=== PATIENT | male | born 1945 | race Caucasian/White ===

== ENCOUNTER 2017-03-17 06:00 | Inpatient (IN) | payer BC ==
[2017-03-17] MEDS ORDERED: oxyCODONE HCL 10 MG SUSTAINED ACTING TABLET PO STA (06:37)
[2017-03-17 07:27] VITALS: BMI 27.9
[2017-03-17] MEDS ORDERED: GELATIN, ABSORBABLE 100 EACH SPONGE TP ONE (07:47)
[2017-03-17] MEDS ORDERED: LIDOCAINE 1%/EPI 1:100000 (20 ML MULTI DOSE VIAL) ONE (07:48)
[2017-03-17] MEDS ORDERED: THROMBIN (BOVINE) 5,000 UNIT VIAL TP ONE ×2 (07:50→09:24)
[2017-03-17] MEDS ORDERED: BUPIVACAINE HCL/PF (5 MG/ML) 30 ML VIAL IJ ONE (08:04)
[2017-03-17] MEDS ORDERED: MIDAZOLAM HCL 2 MG/2 ML SINGLE DOSE VIAL ONE (08:04)
[2017-03-17] MEDS ORDERED: DEXAMETHASONE SOD PHOSPHATE/PF 10 MG/ML SDV ONE (08:04)
[2017-03-17] MEDS ORDERED: BUPIVACAINE LIPOSOME/PF (EXPAREL) 266 MG/20 ML VIAL ONE (08:05)
[2017-03-17] MEDS ORDERED: SUCCINYLCHOLINE CHLORIDE 200 MG/10 ML VIAL ONE (08:57)
[2017-03-17] MEDS ORDERED: LIDOCAINE 1%/EPI 1:100000 (20 ML MULTI DOSE VIAL) IJ ONE ×2 (09:15→09:42)
[2017-03-17] MEDS ORDERED: ONDANSETRON 4 MG/2 ML VIAL IVPUSH PRN (09:25)
[2017-03-17] MEDS ORDERED: LACTATED RINGERS SOLUTION 1,000 ML IV SCH (09:30)
[2017-03-17] MEDS ORDERED: GUM MASTIC/STORAX/MSAL/ALCOHOL 1 DRP DROPSBTL MC ONE (10:35)
--- NOTE | 2017-03-17 10:51 | HP ---
History & Physical Update - History History: No Change - Physical Physical: No Change - Assessment Assessment: No Change - Plan Plan: No Change
--- NOTE | 2017-03-17 10:53 | OP ---
Operative Note - Note: Operative Date: 03/17/17 Pre-Operative Diagnosis: L4-L5 spondylolithesis Operation: L4-L5 TILF Implants: allograft Post-Operative Diagnosis: Same as Pre-op Surgeon: Hesham Nelson Towboat Operator: Jeremiah Hamm Anesthesiologist/PHOTOSTAT OPERATOR HELPER: Dustin Alexander (TLIP in holding) Anesthesia: Spinal Estimated Blood Loss (mls): 25 Fluid Volume Replaced (mls): 900 Operative Report Dictated: Yes
[2017-03-17] MEDS ORDERED: oxyCODONE HCL 5 MG TABLET ONE (13:42)
[2017-03-17] MEDS ORDERED: oxyCODONE HCL 5 MG TABLET PO ONE (14:37)
[2017-03-17 15:21] VITALS: TEMP 98
--- NOTE | 2017-03-17 15:35 | SURG ---
Surgery Gas Manager Note Gas Manager: Jeremiah Hamm PA-C Date of Service: 03/17/17 Diagnosis: L4-L5 spondylolithesis, radiculopathy Procedure: L4-L5 transforaminal lumbar interbody fusion/decimpression/instrumentation, allograft implant, neuromonitoring I was present for the entirety of the operative procedure. For further detail, please refer to operative report. Visit type - Case Type Case Type: Scheduled Admission - New patient This patient is new to me today: Yes Date on this admission: 03/17/17
[2017-03-17] MEDS ORDERED: KETOROLAC TROMETHAMINE 30 MG/1 ML VIAL ONE (16:03)
[2017-03-17] MEDS ORDERED: CEFAZOLIN 1 GM/D5W 1 GM/50 ML BAG ONE (16:10)
[2017-03-17] MEDS ORDERED: CYCLOBENZAPRINE HCL 10 MG TABLET (FP) PO ONE (16:15)
[2017-03-17] MEDS ORDERED: KETOROLAC TROMETHAMINE 15 MG/ML VIAL IVPUSH ONE (16:15)
[2017-03-17 18:30] VITALS: BP 138/76; PULSE 76
--- NOTE | 2017-03-22 11:54 | OP ---
DATE OF OPERATION: 03/17/2017 PREOPERATIVE DIAGNOSES: 1. Spondylolisthesis at L4-5. 2. Spinal stenosis at L4-5. POSTOPERATIVE DIAGNOSES: 1. Spondylolisthesis at L4-5. 2. Spinal stenosis at L4-5. PROCEDURE PERFORMED: 1. Transforaminal lumbar interbody fusion at L4-5. 2. Placement of instrumentation. 3. Placement of prosthetic cage. SURGEON: Hesham Nelson MD UX VISUAL DESIGNER: LAURA Pinedo ESTIMATED BLOOD LOSS: 50 mL INTRAVENOUS FLUIDS: Per Anesthesia. COMPLICATIONS: None. DISPOSITION: Patient brought to the PACU in stable condition. ANESTHESIA: Spinal/TLIP. INDICATION FOR SURGERY: The patient is a 71-year-old gentleman who has been suffering from pain from his back down his leg. X-rays and MRI were completed which noted that he had spinal stenosis at L4-5 secondary to a spondylolisthesis. He had gone through an exhaustive course of treatment for this which included medications, physical therapy, as well as injections. Unfortunately, his pain continued to persist despite all this. At this point, risks, benefits, and alternatives were discussed, and the patient consented to surgery. DESCRIPTION OF PROCEDURE: Patient was brought to the operating room by the anesthesia staff. After appropriate patient identification was performed, spinal anesthesia was given. A TLIP block was also given. Patient was placed prone onto the OR table with all areas of bony prominences well padded at this time. The C-arm was brought in. The L4 and L5 pedicles were marked off. Next, 10 mL of lidocaine with epinephrine were injected into his back. At this time, his back was prepped and draped in a sterile manner. At this point, timeout was completed. Incisions were made bilaterally over the L4 and L5 pedicles. Dissection was carried down to the fascia. Fascia was then split open at this time, and appropriate retractors were then placed in. Under C-arm guidance, trocars were advanced into both the L4 and L5 pedicles. Through the trocars, guidewire was inserted. Over the guidewire, a tap was performed and screws inserted. On the left-hand side, retractor blades were set up to expose the L4-5 facet joint. This was confirmed with x-ray. The facet joint was removed. The disk was entered using a series of pituitaries, Kerrisons, and curettes. A diskectomy was completed. The endplates were decorticated at this time. Bone graft was laid down. A cage filled with bone graft was placed in. Tulip heads were placed over the screws. A nicki was measured and placed in. Caps were placed on. Final tightening was performed. On the right-hand side, a nicki was measured and placed in. Caps were placed on. Final tightening was performed. All instrumentation was removed at this time. AP and lateral x-rays confirmed the instrumentation to be in good position. The fascia was closed with a No. 1 Vicryl suture. The subcutaneous tissue was closed with 2-0 Vicryl suture. The skin was closed with 3-0 Monocryl suture. Dermabond was applied. Steri-Strips were applied. A sterile dressing was applied. Patient was placed supine on the OR bed and brought to the PACU in stable condition. Hawa [id number]
== END 2017-03-17 18:15 | disposition home or self-care (01) | DRG 460 ==
LOC: FASU 06:00 → EDSTATUS 10:15 → FM/S 11:16
PROVIDERS: ADMIT Orthopaedic Surgery Orthopaedic Surgery of the Spine; ATTEND Orthopaedic Surgery Orthopaedic Surgery of the Spine
PROC: 0SB20ZZ Excision of Lumbar Vertebral Disc, Open Approach (ICD-10-PCS; 2017-03-17)
PROC: 4A11X4G Monitoring of Peripheral Nervous Electrical Activity, Intraoperative, External Approach (ICD-10-PCS; 2017-03-17)
PROC: 0SG00AJ Fusion of Lumbar Vertebral Joint with Interbody Fusion Device, Posterior Approach, Anterior Column, Open Approach (ICD-10-PCS; principal; 2017-03-17 09:24)
DX: M43.16 Spondylolisthesis, lumbar region (principal); M54.16 Radiculopathy, lumbar region
CPT/HCPCS: 72100-TC-FY

== ENCOUNTER 2017-05-23 06:09 | Day surgery (SDC) | payer BC ==
[2017-05-17 17:25] VITALS: BMI 27.0
[2017-05-23 13:23] VITALS: PULSE 60; TEMP 98
[2017-05-23 15:00] VITALS: BP 116/65
== END 2017-05-23 14:00 | disposition home or self-care (01) ==
LOC: FASU 06:09
PROVIDERS: ATTEND Orthopaedic Surgery Orthopaedic Surgery of the Spine
PROC: 01NB0ZZ Release Lumbar Nerve, Open Approach (ICD-10-PCS; principal; 2017-05-23)
DX: M48.061 Spinal stenosis, lumbar region without neurogenic claudication (principal)
CPT/HCPCS: 72100-TC-FY; 94760

== ENCOUNTER 2018-03-16 06:01 | Inpatient (IN) | payer BC, OTHER ==
[2018-03-09 10:42] VITALS: BMI 28.8
[~2018-03-16 06:01] MED LIST: CEFAZOLIN 2 GM in DEXTROSE 5%-WATER - 50 ML IVPB ONE; CELECOXIB 200 MG CAPSULE PO ONE; GABAPENTIN 300 MG CAPSULE (FP) PO ONE; PANTOPRAZOLE 40 MG TABLET (FP) PO ONE; ROPIVICAINE 0.2%/MORPH PF/KETOROLAC - 51ML DISP.SYRINGE IA ONE; TRANEXAMIC ACID 1000 MG/10 ML VIAL IVPUSH ONE; oxyCODONE HCL 10 MG SUSTAINED ACTING TABLET PO ONE
[2018-03-16] MEDS ORDERED: PANTOPRAZOLE 40 MG TABLET (FP) ONE (07:01)
[2018-03-16] MEDS ORDERED: oxyCODONE HCL 10 MG SUSTAINED ACTING TABLET ONE (07:01)
[2018-03-16] MEDS ORDERED: GABAPENTIN 300 MG CAPSULE (FP) ONE (07:01)
[2018-03-16] MEDS ORDERED: CELECOXIB 200 MG CAPSULE ONE (07:02)
--- NOTE | 2018-03-16 07:13 | HP ---
Admitting History and Physical - Admission Chief Complaint: right hip osteoarthritis x years History of Present Illness: 72-year-old male presenting in regard to his right hip. Long-standing history of right hip osteoarthritis. Patient complains of pain, limited range of motion , difficulty ambulating, and difficulty with activities of daily living. Patient has Isaiah conservative treatment options including PO medications, activity modification, injections, and exercise programs. At this point, patient would like to proceed with surgical intervention-right total hip arthroplasty, MAKOplasty. History Source: Patient - Past Medical History Cardiovascular: Yes: HTN. No: AFIB, Deep Vein Thrombosis Renal/: Yes: UTI. No: Hematuria - Past Surgical History Additional Past Surgical History: See written history and physical. - Smoking History Smoking history: Former smoker Have you smoked in the past 12 months: No - Alcohol/Substance Use Hx Alcohol Use: No Home Medications - Allergies Allergies/Adverse Reactions: Allergies Allergy/AdvReac Type Severity Reaction Status Date / Time No Known Drug Allergies Allergy Verified 03/09/18 10:34 - Home Medications Home Medications: Ambulatory Orders Lisinopril 10 mg PO BID 03/14/17 Acetaminophen [Tylenol -] 325 mg PO Q6H PRN 03/14/18 Clindamycin [Cleocin -] 150 mg PO Q6H 03/14/18 Metformin HCl [Glucophage] 500 mg PO HS 03/16/18 Review of Systems - Review of Systems Musculoskeletal: reports: Decreased ROM (right hip), Joint Pain (right hip) Physical Examination Vital Signs: Vital Signs Temperature Pulse Rate Respiratory Rate Blood Pressure O2 Sat by Pulse Oximetry (%) 98 03/16/18 06:40 Constitutional: Yes: Well Nourished, No Distress Eyes: Yes: Conjunctiva Clear HENT: Yes: Atraumatic, Normocephalic Neck: Yes: Supple Cardiovascular: Yes: Regular Rate and Rhythm Respiratory: Yes: Regular Gastrointestinal: Yes: Soft ...Rectal Exam: Yes: Deferred Musculoskeletal: Yes: Joint Stiffness (right hip), Joint Swelling (right hip) Assessment/Plan 72-year-old male presenting in regard to his right hip. Long-standing history of right hip osteoarthritis. Patient complains of pain, limited range of motion , difficulty ambulating, and difficulty with activities of daily living. Patient has Isaiah conservative treatment options including PO medications, activity modification, injections, and exercise programs. At this point, patient would like to proceed with surgical intervention-right total hip arthroplasty, MAKOplasty. Pros, cons, risks, benefits and alternatives of a right total hip arthroplasty, MAKOplasty was discussed with the patient at length. Patient confirms his understanding and consents to proceed with a right total hip arthroplasty, MAKOplasrt.
[2018-03-16] MEDS ORDERED: ceFAZolin SODIUM 1 GM VIAL ONE ×2 (07:17→08:57)
[2018-03-16] MEDS ORDERED: TRANEXAMIC ACID 1000 MG/10 ML VIAL ONE ×2 (07:17→08:34)
[2018-03-16] MEDS ORDERED: VANCOMYCIN 1,000 MG VIAL (RESTRICTED TO ID ONLY) ONE (07:18)
[2018-03-16] MEDS ORDERED: MIDAZOLAM HCL 2 MG/2 ML SINGLE DOSE VIAL ONE (07:38)
[2018-03-16] MEDS ORDERED: SUCCINYLCHOLINE CHLORIDE 200 MG/10 ML VIAL ONE (07:38)
[2018-03-16] MEDS ORDERED: ROPIVACAINE HCL 0.5% 30ML VIAL ONE (07:39)
[2018-03-16] MEDS ORDERED: ePHEDrine SULFATE 50 MG/1 ML AMPULE ONE (08:54)
[2018-03-16] MEDS ORDERED: PROPOFOL 20 ML ONE ×2 (09:10)
[2018-03-16] MEDS ORDERED: TRANEXAMIC ACID 1000 MG/10 ML VIAL IVPB ONE ×2 (09:38→10:42)
[2018-03-16] MEDS ORDERED: VANCOMYCIN 1,000 MG VIAL (RESTRICTED TO ID ONLY) IVPB ONE ×2 (09:39→10:42)
[2018-03-16] MEDS ORDERED: ONDANSETRON 4 MG/2 ML VIAL IVPUSH PRN ×2 (10:17→11:29)
[2018-03-16] MEDS ORDERED: oxyCODONE HCL 5 MG TABLET PO PRN (10:17)
[2018-03-16] MEDS ORDERED: ACETAMINOPHEN 325 MG TABLET (FP) PO SCH (10:30)
[2018-03-16] MEDS ORDERED: LACTATED RINGERS SOLUTION 1,000 ML IV SCH ×2 (10:30→11:30)
[2018-03-16] MEDS ORDERED: ROPIVICAINE 0.2%/MORPH PF/KETOROLAC - 51ML DISP.SYRINGE IA ONE ×2 (10:33→10:42)
[2018-03-16] MEDS ORDERED: KETOROLAC TROMETHAMINE 30 MG/1 ML VIAL ONE (11:22)
[2018-03-16] MEDS ORDERED: MAGNESIUM HYDROX 2400MG/30ML ORAL SUSPENSION 30 ML CUP PO PRN (11:29)
[2018-03-16] MEDS ORDERED: MAG HYDROX/AL HYDROX/SIMETH 30 ML UNIT-DOSE CUP PO PRN (11:29)
[2018-03-16] MEDS ORDERED: ACETAMINOPHEN INJECTION 100 ML IVPB ONE (11:30)
[2018-03-16] MEDS ORDERED: traMADol HCL 50 MG TABLET ONE (11:30)
[2018-03-16] MEDS: KETOROLAC TROMETHAMINE 30 MG/1 ML VIAL IVPUSH SCH ×4 (11:37→23:34)
[2018-03-16] MEDS: ACETAMINOPHEN 1000 MG/100 ML VIAL (NON FORMULARY) IVPB ONE ×2 (11:40→12:42)
[2018-03-16] MEDS: traMADol HCL 50 MG TABLET PO SCH ×4 (11:47→23:35)
[2018-03-16] MEDS: CLINDAMYCIN HCL 150 MG CAPSULE (FP) PO SCH ×4 (12:13→23:34)
--- NOTE | 2018-03-16 12:15 | SPEC ---
DATE OF OPERATION: 03/16/2018 PREOPERATIVE DIAGNOSIS: Right hip osteoarthritis. POSTOPERATIVE DIAGNOSIS: Right hip osteoarthritis. PROCEDURE: Right total hip replacement with MAKOplasty robotic navigation. ATTENDING: Young Giordano MD HEALTH AND SAFETY INSPECTOR: LAURA Godwin. ANESTHESIA: Spinal plus sedation. ESTIMATED BLOOD LOSS: 200 mL. COMPLICATIONS: None. DISPOSITION: The patient was transferred to the PACU in stable condition. IMPLANTS USED: Elizabeth Accolade 2 size 10 femoral components, Winifred Tritanium 58 mm acetabular component with 40 and 25 mm acetabular screws, MDM bipolar head ball and liner with interceramic 0 offset head ball. INDICATIONS: This is a 72-year-old male who presented to the office complaining of severe right hip pain. He has a previous history of lumbar radiculopathy and underwent spine surgery, but still continues to have radiating pain in his right thigh. Radiograph and physical examination revealed severe arthritis of the right hip. The patient was initially treated non-operatively, but conservative management failed. He was therefore indicated for a right total hip replacement. The risks, benefits, and alternatives to the procedure were explained to the patient in great detail, and he elected to proceed with the surgery. DESCRIPTION OF PROCEDURE: On the day of surgery, the patient was taken to the operating room and placed on the OR table. Spinal anesthesia was administered by the anesthesiologist. The patient was then positioned in the lateral decubitus position on the table and all bony prominences were padded. An axillary roll was placed. The operative hip was then prepped and draped in the usual sterile fashion and intravenous antibiotics were given for infection prophylaxis. A surgical time-out was then performed with the team, and the patients identity, procedure, side, availability of implants, and the administration of antibiotics were confirmed. An approximately 15-cm longitudinal incision was made through the skin centered on the greater trochanter of the hip. This dissection was carried down through the subcutaneous tissues to the deep fascia. This fascia was then incised and a Cobra was placed around the inferior femoral neck. Electrocautery was used to reflect the anterior 40% of the gluteus medius and minimus starting at the musculotendinous junction and leaving a cuff for closure. This was reflected to reveal the capsule of the hip joint. An anterior capsulectomy was performed and the femoral head and neck were visualized. Grade 4 changes were noted diffusely throughout the joint. At this point, three small stab incisions were made superior to the main incision along the iliac crest. Three self-drilling Steinmann pins were then placed and the [employer] pelvic array was attached. Reference points on the limb were then entered into the robotic device and the limb length deficiency, offset, and femoral neck resection level were then calculated by the software. The hip was then dislocated with traction and external rotation. An oscillating saw was used to make the femoral neck cut at the level previously templated, and the femoral head was removed. Attention was then turned to the acetabulum. Retractors were then placed around the acetabulum and the labrum was removed. An acetabular checkpoint pin and the [employer] software were used to register the contours of the acetabulum. The acetabulum was then reamed in a single stage to the preoperatively templated size using the [employer] robotic arm. The appropriately sized cup was then impacted and had solid fixation as well as the preset inclination and version of 40 and 20 degrees, respectively. A polyethylene liner was then placed in the cup. Attention was then turned back to the femur, which was externally rotated for improved visualization. A femoral neck elevator was used to present the femoral neck cut, a box osteotome was used to enter the femoral canal, and a canal finder was used to go down the femoral shaft. The Bart broaches were used sequentially until the optimal scratch fit was achieved. This correlated with the preoperatively templated size. From here, several different offset head and neck configurations were tested until excellent stability and length were obtained. These measurements were quantified using the [employer] software. All trial components were then removed, the femur was copiously irrigated, and the final components were placed. Leg length and stability were checked again and found to be excellent. Irrigation was performed again. Wound closure was started by repairing the abductor muscles with a no. 2 FiberWire stitch in a Krackow configuration passed through bone tunnels in the greater trochanter and tied over a bony bridge. This repair was then reinforced with a 0 V-Loc 180 barbed suture. Next, no. 1 Polysorb and 0 V-Loc 180 were used to close the fascia. The deep subcutaneous tissue was closed with no. 1 Polysorb sutures, and 2-0 Polysorb was used for the superficial subcutaneous tissue. The skin was closed using both 3-0 V-Loc 90 suture in a running subcuticular fashion and SwiftSet skin adhesive. The Bart array and pins were removed from the iliac crest and the stab incision sites were irrigated and closed with 4-0 Polysorb sutures and SwiftSet skin adhesive. Once this was completed, a sterile dressing was applied. The patient was then awakened and taken to the PACU in stable condition. YOUNG GIORDANO M.D. [id number]
[2018-03-16] MEDS: ACETAMINOPHEN 325 MG TABLET (FP) PO SCH ×2 (18:12→23:37)
[2018-03-16] MEDS: CEFAZOLIN 2 GM/D5W 2 GM/50 ML ML IVPB SCH (18:13)
[2018-03-16] MEDS ORDERED: DEXAMETHASONE SOD PHOSPHATE 10 MG/1 ML VIAL IVPB ONE (20:00)
[2018-03-16] MEDS: metFORMIN HCL 500 MG TABLET (FP) PO SCH (21:14)
[2018-03-16] MEDS: oxyCODONE HCL 10 MG SUSTAINED ACTING TABLET PO SCH (21:14)
[2018-03-16] MEDS: GABAPENTIN 300 MG CAPSULE (FP) PO SCH (21:14)
[2018-03-16] MEDS: CELECOXIB 200 MG CAPSULE PO SCH (21:14)
[2018-03-16] MEDS: SENNOSIDES/DOCUSATE COMBO (SENNA PLUS) TABLET (UD) PO SCH (21:15)
[2018-03-16] MEDS: LISINOPRIL 10 MG TABLET (FP) PO SCH (21:15)
[2018-03-16] MEDS: ASCORBIC ACID 500 MG TABLET (FP) PO SCH (21:15)
[2018-03-16] MEDS ORDERED: GABAPENTIN 300 MG CAPSULE (FP) PO SCH (22:00)
[2018-03-17] MEDS: CEFAZOLIN 2 GM/D5W 2 GM/50 ML ML IVPB SCH (01:06)
[2018-03-17] MEDS: CLINDAMYCIN HCL 150 MG CAPSULE (FP) PO SCH ×4 (05:52→23:29)
[2018-03-17] MEDS: KETOROLAC TROMETHAMINE 30 MG/1 ML VIAL IVPUSH SCH (05:52)
[2018-03-17] MEDS: traMADol HCL 50 MG TABLET PO SCH ×4 (05:53→23:29)
[2018-03-17] MEDS: ACETAMINOPHEN 325 MG TABLET (FP) PO SCH ×4 (05:54→23:30)
[2018-03-17 07:28] LABS: HEMATOCRIT 43.8 % (35.4-49); HEMOGLOBIN 14.4 GM/dl (11.7-16.9); MCH 30.1 pg (25.7-33.7); MCHC 32.8 g/dl (32.0-35.9); MEAN CELL VOLUME 91.7 fl (80-96); MEAN PLT VOLUME 8.5 fl (7.5-11.1); PLATELET COUNT 212 K/MM3 (134-434); RBC 4.77 M/mm3 (4.00-5.60); RDW 12.1 % (11.9-15.9); WHITE BLOOD COUNT 11.1 K/mm3 (4.0-10.8)
[2018-03-17] MEDS: ASPIRIN 325 MG TABLET PO SCH (08:03)
[2018-03-17 08:12] LABS: ANION GAP 11 MMOL/L (8-16); BLOOD UREA NITROGEN 28 mg/dl (7-18); CHLORIDE 101 mmol/L (98-107); CO2 24 mmol/L (21-32); GLUCOSE,RANDOM 255 mg/dl (74-106); POTASSIUM 5.1 mmol/L (3.5-5.1); SODIUM 136 mmol/L (136-145)
[2018-03-17] MEDS: oxyCODONE HCL 5 MG TABLET PO PRN ×2 (08:15→08:16)
[2018-03-17] MEDS: PANTOPRAZOLE 40 MG TABLET (FP) PO SCH (09:47)
[2018-03-17] MEDS: SENNOSIDES/DOCUSATE COMBO (SENNA PLUS) TABLET (UD) PO SCH ×2 (09:47→21:05)
[2018-03-17] MEDS: ASCORBIC ACID 500 MG TABLET (FP) PO SCH ×2 (09:47→21:05)
[2018-03-17] MEDS: LISINOPRIL 10 MG TABLET (FP) PO SCH ×2 (09:47→21:05)
[2018-03-17] MEDS: MULTIVITAMINS (DAILY MVI) TABLET (FP) PO SCH (09:48)
[2018-03-17] MEDS: CELECOXIB 200 MG CAPSULE PO SCH ×2 (09:48→21:05)
[2018-03-17] MEDS: GABAPENTIN 300 MG CAPSULE (FP) PO SCH ×2 (09:48→21:05)
[2018-03-17] MEDS: oxyCODONE HCL 10 MG SUSTAINED ACTING TABLET PO SCH ×2 (09:48→21:06)
--- NOTE | 2018-03-17 10:18 | PN ---
Progress Note (short form) - Note Progress Note: POD #1 - s/p right total hip replacement. VSS. Pt. currently attending rehab class. No apparent anesthetic complications noted. Continue current care.
--- NOTE | 2018-03-17 17:43 | PN ---
Progress Note (short form) - Note Progress Note: Pt seen and examined Tuesday. Doing very well. Walked 800+ feet. Pain well controlled. AVSS Selected Entries 03/17/18 03/17/18 18:00 22:00 Temperature 98.1 F 98.0 F Pulse Rate 56 L 58 L Respiratory 16 18 Rate Blood Pressure 100/43 L 107/49 L O2 Sat by Pulse 96 97 Oximetry (%) Oxygen Delivery Room Air Room Air Method Laboratory Tests 03/16/18 03/16/18 03/17/18 06:33 11:40 07:00 WBC 11.1 H Hgb 14.4 Hct 43.8 Plt Count 212 Sodium Potassium Chloride Carbon Dioxide Anion Gap BUN Creatinine Creat Clearance w eGFR POC Glucometer 194 159 Random Glucose Calcium 03/17/18 07:00 WBC Hgb Hct Plt Count Sodium 136 Potassium 5.1 Chloride 101 Carbon Dioxide 24 Anion Gap 11 BUN 28 H Creatinine 1.0 Creat Clearance w eGFR > 60 POC Glucometer Random Glucose 255 H Calcium 9.0 Gen: NAD RLE: c/d/i, NVID A/P 72yo male s/p R MAME PT/OOB D/C home Tuesday
[2018-03-17] MEDS: metFORMIN HCL 500 MG TABLET (FP) PO SCH (21:05)
[2018-03-18] MEDS: traMADol HCL 50 MG TABLET PO SCH (05:41)
[2018-03-18] MEDS: CLINDAMYCIN HCL 150 MG CAPSULE (FP) PO SCH (05:41)
[2018-03-18] MEDS: ACETAMINOPHEN 325 MG TABLET (FP) PO SCH (05:41)
[2018-03-18] MEDS: ASPIRIN 325 MG TABLET PO SCH (08:21)
[2018-03-18 08:26] LABS: HEMATOCRIT 38.5 % (35.4-49); MCH 30.8 pg (25.7-33.7); MCHC 33.7 g/dl (32.0-35.9); MEAN CELL VOLUME 91.4 fl (80-96); MEAN PLT VOLUME 8.4 fl (7.5-11.1); PLATELET COUNT 200 K/MM3 (134-434); RBC 4.22 M/mm3 (4.00-5.60); RDW 11.9 % (11.9-15.9); WHITE BLOOD COUNT 10.7 K/mm3 (4.0-10.8)
[2018-03-18] MEDS: CELECOXIB 200 MG CAPSULE PO SCH (09:37)
[2018-03-18] MEDS: SENNOSIDES/DOCUSATE COMBO (SENNA PLUS) TABLET (UD) PO SCH (09:38)
[2018-03-18] MEDS: oxyCODONE HCL 10 MG SUSTAINED ACTING TABLET PO SCH (09:38)
[2018-03-18] MEDS: PANTOPRAZOLE 40 MG TABLET (FP) PO SCH (09:38)
[2018-03-18] MEDS: GABAPENTIN 300 MG CAPSULE (FP) PO SCH (09:38)
[2018-03-18] MEDS: LISINOPRIL 10 MG TABLET (FP) PO SCH (09:38)
[2018-03-18] MEDS: MULTIVITAMINS (DAILY MVI) TABLET (FP) PO SCH (09:39)
[2018-03-18] MEDS: oxyCODONE HCL 5 MG TABLET PO PRN (09:39)
[2018-03-18] MEDS: ASCORBIC ACID 500 MG TABLET (FP) PO SCH (09:39)
--- NOTE | 2018-03-18 10:03 | DS ---
Physical Examination Vital Signs: Vital Signs Temperature 97.9 F 03/18/18 06:00 Pulse Rate 55 L 03/18/18 06:00 Respiratory Rate 16 03/18/18 06:00 Blood Pressure 110/59 L 03/18/18 06:00 O2 Sat by Pulse Oximetry (%) 97 03/17/18 22:00 Labs: CBC, BMP 03/18/18 07:15 03/17/18 07:00 Discharge Summary Reason For Visit: OSTEOARTHRITIS RT HIP Current Active Problems Osteoarthritis of right hip (Acute) Procedures: Principal: right YESSICA MAME Hospital Course: Admitted for elective surgery. Procedure performed without complications. Pt received postoperative antibiotic prophylaxis and DVT ppx. Ambulated with physical therapy. Stable for discharge home with outpatient followup. Condition: Stable - Instructions Diet, Activity, Other Instructions: Dr Juárez - Hip Replacement Instructions Keep the Aquacel dressing on until removed by Dr. Juárez in 10-14 days - it is antibacterial and waterproof and you can shower with it on. Call the office for a follow-up appointment with Dr. Juárez in 10-14 days. Take one Aspirin 325mg daily for 6 weeks to prevent blood clots in your legs. Take one Pantoprazole 40mg daily for 6 weeks to protect against heartburn and ulcers. Take Cephalexin (antibiotic) 3x/day for 10 days to help prevent skin infection. Take Celebrex 200mg daily for 30 days to reduce swelling and inflammation. Take a multivitamin, stool softener and extra Vitamin C supplement daily. For pain: *Mild pain (1-3/10): Take 1 Tramadol tablet every 4 hours as needed. Moderate pain (4-6/10): Take 1 Tramadol tablet and 1 Percocet tablet every 4 hours as needed. Severe pain (7-10/10): Take 1 Tramadol tablet and 2 Percocet tablets every 4 hours as needed. Activity: You can put as much weight on the operative leg as you want. For the first 6 weeks, all you need to do is walk around the house, go up/down stairs, and sit down/get up. After 6 weeks when everything is healed (and bone has grown into the implant) you will be sent for more intensive outpatient physical therapy. Always use a walker or cane for balance and to prevent falls. Expect to see swelling / bruising from the operative site all the way down to your toes. Wear the Compression stocking on the operative side during the day to minimize how much swelling there is in your foot/ankle. Don't wear the stocking at night. You don't have to wear the stocking on the other side. Disposition: VNS/HOME HEALTH CARE - Home Medications Comprehensive Discharge Medication List: Ambulatory Orders Lisinopril 10 mg PO BID 03/14/17 Metformin HCl [Glucophage] 500 mg PO HS 03/16/18 Ascorbic Acid [Vitamin C -] 500 mg PO BID tablet 03/18/18 Aspirin [ASA -] 325 mg PO DAILY@0800 tablet 03/18/18 Celecoxib [CeleBREX -] 200 mg PO DAILY #30 capsule 03/18/18 Cephalexin Monohydrate [Keflex -] 500 mg PO TID #30 capsule 03/18/18 Multivitamins [Multivit ([facility] Formul[facility])] 1 tab PO DAILY tab 03/18/18 Oxycodone HCl/Acetaminophen [Percocet 5-325 mg Tablet] 1 - 2 tab PO Q4H PRN #60 tablet MDD 10 03/18/18 Pantoprazole Sodium [Protonix -] 40 mg PO DAILY #40 tablet.ec 03/18/18 Sennosides/Docusate Sodium [Pericolace -] 2 tablet PO BID tablet 03/18/18 traMADol HCL [Ultram -] 50 mg PO Q4H PRN #90 tablet MDD 6 03/18/18
[2018-03-18 10:55] VITALS: BP 133/78; PULSE 72; TEMP 98
--- NOTE | 2018-03-22 15:59 | PATH ---
Surgical Pathology Report Patient Name: LANCE FAN Med. Rec. #: [id number] /Age/Gender: 1945 (Age: 72) / M Account: [id number] Location: [facility] MED-SURG Taken: 03/16/2018 Received: 03/16/2018 Reported: 03/22/2018 Physicians: Gustavo Juárez M.D. Specimen(s) Received RIGHT HEAD OF FEMUR Clinical History Right hip osteoarthritis Final Diagnosis HEAD OF FEMUR, RIGHT, TOTAL HIP REPLACEMENT: DEGENERATIVE JOINT DISEASE. Electronically Signed Nadine Alcocer M.D. Gross Description Received in formalin, labeled "right head of femur," is a 5.3 x 5.0 x 5.0 cm. femoral head with 1.4 cm in length portion of femoral neck attached. The margin of resection is smooth. There is a 5 cm in greatest dimension area of eburnation present. The remaining articular surface is bravo-yellow and diffusely granular. The underlying trabecular bone is yellow and hard. A wholesale representative section is submitted in one cassette, following decalcification. /03/17/2018 [facility]03/17/2018
== END 2018-03-18 10:56 | disposition home health service (06) | DRG 470 ==
LOC: FM/S 06:01 → EDSTATUS 08:00 → FM/S 13:02
PROVIDERS: ADMIT Student in an Organized Health Care Education/Training Program; ATTEND Student in an Organized Health Care Education/Training Program
PROC: 8E0W0CZ Robotic Assisted Procedure of Trunk Region, Open Approach (ICD-10-PCS; 2018-03-16)
PROC: 0SR903A Replacement of Right Hip Joint with Ceramic Synthetic Substitute, Uncemented, Open Approach (ICD-10-PCS; principal; 2018-03-16 09:14)
DX: M16.11 Unilateral primary osteoarthritis, right hip (principal); I10 Essential (primary) hypertension
CPT/HCPCS: 36415; 73523-TC-FY; 80048; 82962; 85027; 88304-TC; 88311-TC; 94760; 97116-GP; 97162-GP; J0131; J1100